=== PATIENT | female | born 1945 | race American Indian/Alaskan Native ===

== ENCOUNTER 2017-01-31 11:11 | Emergency (ER) | payer MEDICARE, BC ==
[2017-01-31 11:12] VITALS: BMI 37.8
[2017-01-31 11:38] VITALS: BP 154/95; PULSE 84; RESP 18; TEMP 98.1; O2SAT 95
[2017-01-31] MEDS ORDERED: Oxycodone/Acetaminophen 5/325 mg Tab PO STA (12:14)
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
[2017-01-31] MEDS ORDERED: Oxycodone/Acetaminophen 5/325 mg Tab ONE (12:47)
--- NOTE | 2017-01-31 14:40 | RAD ---
PROCEDURE: Bilateral Knee Radiographs. HISTORY: knee pain COMPARISON: None. FINDINGS: BONES: Right Knee: Normal. No fracture. Left Knee: Normal. No fracture. JOINTS: Right Knee: [id number] osteoarthritic changes. Left knee: [id number] osteoarthritic changes. SOFT TISSUES: Right Knee: Normal. Left Knee: Normal. JOINT EFFUSION: Right Knee: None. Left Knee: None. OTHER FINDINGS: None. IMPRESSION: [id number] bilateral tricompartmental osteoarthritic changes.
== END 2017-01-31 14:10 | disposition home or self-care (01) ==
LOC: H.ER 11:11
DX: M25.562 Pain in left knee (principal); M25.561 Pain in right knee; W19.XXXA Unspecified fall, initial encounter